=== PATIENT | male | born 1940 | race Caucasian/White ===

== ENCOUNTER 2018-02-11 12:54 | Emergency (ER) | payer MEDICARE, OTHER, SELFPAY ==
[2018-02-11 13:14] VITALS: BP 128/98; PULSE 63; RESP 18; O2SAT 100
--- NOTE | 2018-02-11 13:20 | DI.RAD.S_ITS ---
PROCEDURE: XR ANKLE RT MIN 3V INDICATIONS: fall with ankle pain TECHNIQUE: 3 views of the ankle were acquired. COMPARISON: None. FINDINGS: Bones: There is an obliquely oriented fracture identified involving the distal fibular metaphysis that extends into the joint space. No definite fracture of the medial malleolus with the posterior malleolus is evident. Widening of the distal tibiofibular syndesmosis is evident. Otherwise, the ankle mortise is well-maintained. There are mild degenerative changes of the tibiotalar joint. No suspicious osseous lesions are identified. There are plantar and Achilles spurs. Moderate degenerative changes are noted involving the midfoot joints. Soft tissues: There is a small tibiotalar joint effusion. Moderate soft tissue swelling about the ankle is present, more pronounced laterally. IMPRESSION: Minimally displaced distal fibula fracture. Dictated by: Chris Richey M.D. on 02/11/2018 at 14:01 Approved by: Chris Richey M.D. on 02/11/2018 at 14:04
[2018-02-11 13:23] VITALS: BP 128/98; PULSE 63; RESP 18; O2SAT 100; BMI 36.9
--- NOTE | 2018-02-11 13:29 | ED_ITS ---
HPI - Extremity Injury (Lower) <SATISH Goddard-BC - Last Filed: 02/11/18 20:41> General Chief Complaint: Extremity Injury, Lower Stated Complaint: RT ANKLE HURT FELL Time Seen by Provider: 02/11/18 13:08 Source: patient and family Mode of arrival: ambulatory Limitations: no limitations History of Present Illness HPI Narrative: Patient presents with chief complaint of right ankle pain. He tripped and fell at 4:30 a.m. this morning. His fall was mechanical as he tripped on a stair with the carpet. He did not lose consciousness, did not hit his head his neck or his back. He states he did have an abrasion to his left elbow, but he does not want that evaluated today. He took 600 of ibuprofen for his ankle pain at approximately 5:00 a.m. this morning. He states he has broken his right foot before. He denies any numbness or tingling. His pain is centered on the lateral aspect of his right ankle. Patient ambulated into the emergency department today. Related Data Home Medications Medication Instructions Recorded Confirmed allopurinol 300 mg PO QAM 02/11/18 02/11/18 amlodipine 2.5 mg PO DAILY 02/11/18 02/11/18 aspirin 81 mg PO BEDTIME 02/11/18 02/11/18 simvastatin 20 mg PO QAM 02/11/18 02/11/18 Previous Rx's Medication Instructions Recorded tramadol 50 mg PO Q6H PRN #14 tab 02/11/18 Review of Systems <LEIDY Goddard - Last Filed: 02/11/18 20:41> Review of Systems GENERAL: Denies chills, fatigue, malaise, fever, sweats. HEENT: Denies sinus pain, ear pain, sore throat, difficulty swallowing, dizziness. RESPIRATORY: Denies dyspnea, cough, wheezing, hemoptysis, sputum. CARDIOVASCULAR: Denies chest pain, palpitations, orthopnea, edema, GASTROINTESTINAL: Denies nausea, vomiting, abdominal pain, diarrhea, constipation, melena. : Denies dysuria, frequency, incontinence, hematuria, urinary retention. MUSCULOSKELETAL: See HPI SKIN: See HPI NEUROLOGIC: Denies weakness, headache, numbness, change in speech, confusion, seizures, incoordination. PSYCHIATRIC: No concerning psychosocial issues. 12 point review of systems is negative except for those stated above Exam <ROSITA Goddard - Last Filed: 02/11/18 20:41> Narrative Exam Narrative: GENERAL: This is a well-nourished, well-developed patient, in no acute distress. HEAD: Atraumatic. Normocephalic. No temporal or scalp tenderness. EYES: Pupils equal round and reactive. Extraocular motions intact. No scleral icterus. No injection or drainage. ENT: Nose without bleeding, purulent drainage or septal hematoma. Throat without erythema, tonsillar hypertrophy or exudate. Uvula midline. Airway patent. NECK: Trachea midline. No JVD or lymphadenopathy. Supple, nontender, no meningeal signs. CARDIOVASCULAR: Regular rate and rhythm without murmurs, gallops, or rubs. RESPIRATORY: Clear to auscultation. Breath sounds equal bilaterally. No wheezes , rales, or rhonchi. GASTROINTESTINAL: Abdomen soft, non-tender, nondistended. EXTREMITIES: Right ankle pain to palpation lateral superior to lateral malleolus. Patient is able to extend and flex right foot. Positive pedal pulses. Edema noted on right side. Positive pedal pulses right foot. BACK: Nontender without deformity or crepitance. No flank tenderness. NEURO: AOx3. SKIN: Bandage noted on left elbow. Noted to have swelling and slight ecchymosis lateral aspect of right ankle. Initial Vital Signs Initial Vital Signs: Vital Signs Pulse Rate 63 02/11/18 13:14 Respiratory Rate 18 02/11/18 13:14 Blood Pressure 128/98 H 02/11/18 13:14 Pulse Oximetry 100 02/11/18 13:14 <Eric Marie DO - Last Filed: 02/12/18 06:58> Initial Vital Signs Initial Vital Signs: Vital Signs Pulse Rate 63 02/11/18 13:14 Respiratory Rate 18 02/11/18 13:14 Blood Pressure 128/98 H 02/11/18 13:14 Pulse Oximetry 100 02/11/18 13:14 Course <ROSITA Goddard - Last Filed: 02/11/18 20:41> Orders Ordered: Discontinued Medications Tramadol HCl (Ultram) 50 mg PO NOW ONE Stop: 02/11/18 14:25 Last Admin: 02/11/18 14:38 Dose: 50 mg Reevaluation(s) Reevaluation #1: Discussed waiting for x-ray results. Patient is resting in bed with ice pack to ankle. Time: 13:35 Reevaluation #2: Discussed x-ray result of fibula fracture. Discussed nonweightbearing with crutches and splint. Discussed follow-up with Ortho. Discussed pain control as well as rest ice compression elevation. Ordered tramadol as patient states he has tolerated that before for pain. Time: 14:20 Vital Signs - 8 hr 02/11/18 13:14 02/11/18 13:23 02/11/18 15:01 Pulse Rate 63 63 58 L Respiratory Rate 18 18 Blood Pressure 128/98 H Blood Pressure [Left Arm] 128/98 H 130/84 H Pulse Oximetry 100 100 97 <Eric Marie DO - Last Filed: 02/12/18 06:58> Orders Ordered: Discontinued Medications Tramadol HCl (Ultram) 50 mg PO NOW ONE Stop: 02/11/18 14:25 Last Admin: 02/11/18 14:38 Dose: 50 mg Vital Signs - 8 hr 02/11/18 13:14 02/11/18 13:23 02/11/18 15:01 Pulse Rate 63 63 58 L Respiratory Rate 18 18 Blood Pressure 128/98 H Blood Pressure [Left Arm] 128/98 H 130/84 H Pulse Oximetry 100 100 97 MDM - Extremity Injury (Lower) <ROSITA Goddard - Last Filed: 02/11/18 20:41> Differential Diagnosis Likely ankle sprain and strain and ankle fracture Imaging Data right ankle xray: Radiologist's impression: [address] [address] XRay Report Signed Patient: VARSHA DEE MR#: [id number] : 1940 Acct:[id number] Age/Sex: 77 / M Date of Service: 02/11/18 Loc: ED Accession Number: [id number] Procedure: XR ankle RT min 3V Ordering Provider: Randa Ruelas PROCEDURE: XR ANKLE RT MIN 3V INDICATIONS: fall with ankle pain TECHNIQUE: 3 views of the ankle were acquired. COMPARISON: None. FINDINGS: Bones: There is an obliquely oriented fracture identified involving the distal fibular metaphysis that extends into the joint space. No definite fracture of the medial malleolus with the posterior malleolus is evident. Widening of the distal tibiofibular syndesmosis is evident. Otherwise, the ankle mortise is well-maintained. There are mild degenerative changes of the tibiotalar joint. No suspicious osseous lesions are identified. There are plantar and Achilles spurs. Moderate degenerative changes are noted involving the midfoot joints. Soft tissues: There is a small tibiotalar joint effusion. Moderate soft tissue swelling about the ankle is present, more pronounced laterally. IMPRESSION: Minimally displaced distal fibula fracture. Dictated by: Chris Richey M.D. on 02/11/2018 at 14:01 Approved by: Chris Richey M.D. on 02/11/2018 at 14:04 MDM Narrative Medical decision making narrative: Patient presented to the emergency department after a mechanical fall last night. He was weight-bearing when he presented to the ER. However x-ray illustrated a minimally displaced fibular fracture. He was given tramadol for pain control as that has worked well from the past. Given his age and fall risk, I placed him in a boot rather than a posterior splint. He was made nonweightbearing with crutches. I gave him a referral to [facility]. Discussed at length with him follow- up if concerned of and for circulation in his foot. Discharge Plan Departure Patient Disposition: Home, Self-Care Clinical Impression: Fracture of distal end of fibula Discharge Date/Time: 02/11/18 15:21 Interventions: ED Discharge Assessment Last Done: 02/11/18 15:20 Instructions: How to Use Crutches, DI for Ankle Fracture, How To Perform RICE ( Rest, Ice, Compress, Elevate), How to Prevent Falls Activity Restrictions/Additional Instructions: You broke the bottom end of the fibula. I would like you to stay off of it and be nonweightbearing. I have given you a small prescription for tramadol for pain. I would like you to rest ice compression elevation. Use crutches and do not bear weight on your foot. I would like you to follow up with Orthopedics. Please be re-evaluated if you are concerned about the circulation of her foot. I have given you a referral for [facility] so you have their contact information. Prescriptions: New tramadol 50 mg tablet 50 mg PO Q6H PRN (Reason: pain) Qty: 14 RF: 0 No Action amlodipine 5 mg Tablet 2.5 mg PO DAILY RF: 0 aspirin 81 mg Tablet,Delayed Release (Dr/Ec) 81 mg PO BEDTIME RF: 0 simvastatin 40 mg Tablet 20 mg PO QAM RF: 0 allopurinol 300 mg Tablet 300 mg PO QAM RF: 0 Referrals: [facility] [Outside] <Eric Marie DO - Last Filed: 02/12/18 06:58> Cosign ED Attending Jose Attestation: I was available for consultation during this patient's emergency department encounter
[2018-02-11] MEDS: TRAMADOL 50 MG TABLET PO (14:38)
[2018-02-11 15:01] VITALS: BP 130/84; PULSE 58; O2SAT 97
== END 2018-02-11 15:21 | disposition home or self-care (01) ==
PROVIDERS: Emergency Provider Nurse Practitioner Family
DX: S82.831A Other fracture of upper and lower end of right fibula, initial encounter for closed fracture (principal); W18.09XA Striking against other object with subsequent fall, initial encounter
CPT/HCPCS: 29580; 73610; 99283

== ENCOUNTER → 2018-02-13 13:33 | Outpatient (CLI) | payer MEDICARE, OTHER, SELFPAY ==
[2018-02-13 13:58] LABS: Add Manual Diff / Slide Review NO; Basophils Percent Auto 1.3 % (0-2); Hematocrit 42.3 % (41-53); Hemoglobin 14.6 g/dL (13.5-17.5); Mean Corpuscular HGB Conc 34.6 % (30-36); Mean Corpuscular Volume 89.8 fL (80-100); Monocytes Percent Auto 10.2 % (3-14); Neutrophils Absolute Auto 4900 /uL (3000-5900); Neutrophils Percent Auto 65.5 % (50-75); Platelet Count 153 X10^3/uL (150-400); Red Blood Cell Count 4.71 X10^6/uL (4.5-5.9); Red Cell Distribution Width 13.9 % (11.6-14.8); White Blood Cell Count 7.5 X10^3/uL (4.5-11.0)
[2018-02-13 14:52] LABS: Blood Urea Nitrogen 20 mg/dL (9-20); Calcium 8.9 mg/dL (8.4-10.2); Carbon Dioxide 25 mmol/L (22-32); Chloride 103 mmol/L (98-107); Estimated Glomerular Filt Rate > 60.0 mL/min (>60); Glucose 114 mg/dL (80-110); HEMOLYSIS 18 (0-50); Potassium 4.4 mmol/L (3.4-5.1); Sodium 139 mmol/L (137-145)
== END ==
PROVIDERS: Visit Provider Orthopaedic Surgery Foot and Ankle Surgery
DX: Z01.818 Encounter for other preprocedural examination (principal); Z01.812 Encounter for preprocedural laboratory examination; S82.891A Other fracture of right lower leg, initial encounter for closed fracture
CPT/HCPCS: 36415; 80048; 85025; 93005; 93010

== ENCOUNTER 2018-02-18 06:44 | Day surgery (SDC) | payer MEDICARE, OTHER, SELFPAY ==
[2018-02-17 10:43] VITALS: BMI 35.9
[2018-02-18] VITALS (9 sets, daily range): BP systolic 106–137; BP diastolic 70–83; PULSE 66–77; RESP 10–16; TEMP 36.2–36.7; O2SAT 92–933; BMI 35.9
--- NOTE | 2018-02-18 | DI.RAD.S_ITS ---
PROCEDURE: XR ANKLE RT MIN 3V INDICATIONS: ORIF RIGHT ANKLE TECHNIQUE: 3 views of the ankle were acquired. [facility] RIGHT, [facility]/13/2018, 10:45. FINDINGS: Bones: Intraoperative images show placement of a small plate over the medial aspect of the distal tibia and a long orthopedic plate and fixation screws over the distal fibula. Punctate radiodensity at the level of the tibiotalar joint space is not static and likely artifact, not seen on lateral view. The ankle mortise is symmetrical. Soft tissues: Lateral soft tissue swelling. IMPRESSION: Intraoperative ORIF right ankle fracture. Dictated by: Oseas Montgomery M.D. on 02/18/2018 at 14:08 Approved by: Oseas Montgomery M.D. on 02/18/2018 at 14:12
[2018-02-18] MEDS: LACTATED RINGERS 1,000 ML 42 ML IV (09:45)
--- NOTE | 2018-02-18 10:36 | PM.PREOP ---
Pre-operative Note Interval Note Pre-op Check: History & Physical Reviewed by Physician
--- NOTE | 2018-02-18 10:45 | PM.PROC.1 ---
Procedures Date/Time Date of procedure: 02/18/18 Time of procedure: 10:40 General Procedure description: Ultrasound guided popliteal sciatic nerve block for post op pain control after right ankle by Dr. Glover. Risk and benefits of procedure discussed with patient. ASA monitoring applied to patient. Oxygen given via nasal cannula. 1 mg Versed and 50 mcg fentanyl given for procedural sedation. Skin site was prepped with chlorhexidine and allowed to fully dry. Sterile gloves, mask, hat and probe cover were used to maintain sterility. 2% lidocaine and 30ga needle was used to make a small skin wheal at needle insertion site. Under ultrasound guidance, a 21ga 100mm Pajunk needle was directed near the division of the sciatic nerve into tibial and peroneal nerve in the popliteal fossa (lateral approach). Patient reported no parasthesias. After negative aspiration, 20 mL 0.5% ropivicaine and 10mg dexamethasone were injected around sciatic nerve. Patient tolerated procedure well.
[2018-02-18] MEDS: CEFAZOLIN 2 GM/100 ML FROZ.PIGGY IV (11:05)
--- NOTE | 2018-02-18 11:06 | SUR.PREOP ---
dr. kessler in to see patient to discuss anesthesia and regional block... pt consented.. monitors placed.. meds given by dr. kessler..pt awake and conversant thrpouight procedure,,, ekg nsr 60's, bp 120's-140's/80's.. respirs 14 plus.. tolerated well
--- NOTE | 2018-02-18 15:49 | SUR.PHASEII ---
PHYSICAL THERAPY CAME AMD WORKED WITH PT ON CRUTCH TRAINING WITH PT AND HIS , D/C INSTRUCTIONS REVIEWED WITH PT AND WITH VERBALIZED UNDERSTANDING. PT DENIES ANY PAIN, RIGHT FOOT/LEG DRESSING REMAINS DRY AND INTACT, TOES ARE PINK, WARM WITH BRISK CAPILLARY REFILL. PT AND EXPRESSED READYNESS AND DESIRE TO GO HOME.
--- NOTE | 2018-02-18 15:55 | PT.IIE ---
Current Diagnoses Other fracture of right lower leg, initial encounter for closed fracture (02/18/18) Surgery Performed Operation Date: 02/18/18 10:45 Actual Procedures p ORIF Ankle Fracture(Right) - Karol Glover MD Medical History (Last Updated 02/17/18 @ 10:49 by Rachel England RN) Foot fracture, right (Acute) Gout (Acute) HTN (hypertension) (Acute) Hyperlipidemia (Acute) Physical Therapy Inpatient Evaluation/Re-Eval M1 PT/OT-IP Prior Functional Status Start: 02/18/18 15:35 Freq: NEEDED Status: Discharge Protocol: Document 02/18/18 15:10 DLM (Rec: 02/18/18 15:55 DLM [id number]) Medical Review Prior Functional Status Medical History Reviewed Yes Diet/Fluid Consistency Regular Communication WFL Mobility and Gait Independent without device, active, drives Activities of Daily Living and IADL's Independent Prior Functional Level (Other details) camping in 5th wheel trailer, traveling for the summer, he has been using crutches since he fall 02/11/18 Social History Household Members spouse Living Arrangements House Number of Floors (Floors) Two Floors Number of Stairs To Enter/Railing? 3 Home Equipment Crutches Employment Status Retired Additional Social History Comment He is currently in his 5th Wheel trailer staying in [facility] until about 03/13/18. He plans to return home to his house in [place]. He has a very tall truck. He has 3 steps to get into trailer with rail. He has 3 steps up to the bathroom without rail inside the trailer. He can stay on the main floor of his home once he gets back to [place]. M2 PT-IP Current Condition Start: 02/18/18 15:35 Freq: NEEDED Status: Discharge Protocol: Document 02/18/18 15:10 DLM (Rec: 02/18/18 15:55 DLM [id number]) Physical Therapy Current Condition Current Condition Evaluation Date 02/18/18 Treatment Diagnosis right ankle fx, s/p ORIF, gait impairment Onset Date fell 02/11/18 Precautions Brace right ankle immobilized in splint/wrap post-op, he had a cam boot before sx Weight Bearing Status Weight Bearing Status Non-Weight Bearing M3 PT-IP Subjective Start: 02/18/18 15:35 Freq: NEEDED Status: Discharge Protocol: Document 02/18/18 15:10 DLM (Rec: 02/18/18 15:55 DL [id number]) Subjective Physical Therapy Visit Type Type Initial Evaluation Visit Start Time 14:30 Visit Stop Time 15:10 Total Visit Minutes 40 Number of GENERAL PRACTICE Visits 0 Physical Therapy Visit Comments Patient Comments He feels like his crutches are too tall Patient/Caregiver Goals He wants to return to his trailer Therapy Pain Assessment Pain When Pain Assessed During Mobility Location right ankle Intensity 0 Scale Used Numeric (1 - 10) Pain Management Techniques Apply Cold Elevation M4 PT-IP Mobility and Gait Start: 02/18/18 15:35 Freq: NEEDED Status: Discharge Protocol: Document 02/18/18 15:10 DLM (Rec: 02/18/18 15:55 DL [id number]) PT-Bed Mobility Assessment Rolling Level of Assist Independent Supine to Sit Supine to Sit Independent Sit to Supine Sit to Supine Independent Scooting Scooting to Edge of Bed Independent Scooting Up and Down in Bed Independent PT-Transfer Assessment Sit to and From Stand Sit to and from Stand Independent Equipment Transfer Assistive Device Axillary Crutches Orthotic/Prosthetic Devices or Brace: Yes Transfers Transfer Destination Chair Transfer Technique Stand Step Pivot Transfer Ability Level of Assist Standby Assistance Comments Mobility Comments one lateral loss of balance when attempting to turn too fast, after training this problem resolved Gait Assessment Gait Gait Assistance Required: Standby Assistance Distance (Feet) (feet) 40 Able to Maintain Weight Bearing Status Yes During Gait Assistive Devices Assistive Device Gait Belt Axillary Crutches Orthotic/Prosthetic Devices or Brace: Yes Factors Limiting Gait Function Factors Limiting Gait Function Decreased Activity Tolerance Comments Gait Comments changed crutches out to standard crutches and adjusted them to improve his safety with crutches, he has intermittent difficulty coordinating gait pattern for hopping but this improved with training PT-Balance Assessment Sitting Balance and Reactions Static Sitting Balance Ability Normal Dynamic Sitting Balance Ability Normal Standing Balance and Reactions Static Standing Balance Ability Fair Dynamic Standing Balance Ability Fair Device Used with crutches and NWB right LE M5 PT-IP Objective Assessments Start: 02/18/18 15:35 Freq: NEEDED Status: Discharge Protocol: Document 02/18/18 15:10 DLM (Rec: 02/18/18 15:55 DL [id number]) Orientation Orientation/Cognition Level of Alertness Alert Orientation Name Age Birthday Month Date Year Day of Week Place Situation Language Function Ability No Deficits Noted Safety Awareness Understands Safety Issues Memory Description No Deficits Noted Comments His is present this visit , she appears very worried at this time Gross Range of Motion Upper Extremity ROM Assessment Within Functional Limits Lower Extremity ROM Assessment Right Impaired Impairments right ankle immobilized post- op Strength Upper Extremity Strength Assessment Within Functional Limits Lower Extremity Strength Assessment Right Impaired Ankle unable to use Coordination Assessment Gross Coordination Gross Coordination WNL Sensation Assessment Sensation Gross Sensation Right LE Impaired Sensation Description Numbness Comments Sensation Comments post-op numbness right distal LE Muscle Tone Muscle Tone WNL Yes M6 PT-IP Treatment Start: 02/18/18 15:35 Freq: NEEDED Status: Discharge Protocol: Document 02/18/18 15:10 DLM (Rec: 02/18/18 15:55 DLM [id number]) Physical Therapy Treatment Education Education Provided Weight Bearing Status Safety Equipment Issued Equipment Type and Company provided gait belt for pt and his to use as needed Other Treatments Other Treatment Performed educated pt and his in home safety issues, pt to back up to truck and get buttocks on seat before attempting to get his LE's into truck, pt may benefit from FWW once back in [place] at home but unfortunately a FWW will not fit in his trailer M7 PT-IP Assessment and Plan Start: 02/18/18 15:35 Freq: NEEDED Status: Discharge Protocol: Document 02/18/18 15:10 DLM (Rec: 02/18/18 15:55 DLM [id number]) PT Summary Assessment and Plan Potential Rehabilitation Potential Good Status of Condition at Evaluation Evolving Summary Impairments Pain ROM Strength Balance Gait Activity Tolerance Assessment Summary Completed education and training in PACU post-op ankle ORIF. Pt demonstrates understanding of his NWB status on right ankle. He is functional on crutches at this time. Since he is in a trailer the crutches are his best option. Treatment Plan Other Recommendations and Next Treatment pt to discharge with his Focus later today Discharge Recommendations PT Discharge Recommendations Home with Assistance
--- NOTE | 2018-02-18 19:52 | PM.OP.1 ---
Operative Date/Time/Diagnoses - Date of procedure: 02/18/18 Time of procedure: 10:52 Pre-op diagnosis: Closed right ankle fracture icd [id number] bimalleolar equivalent Syndesmosis disruption Procedure & Clinicians Procedure: ORIF fracture distal fibula, right CPT code 80780 ORIF syndesmosis, ankle, right [id number] Same procedure as scheduled: Yes Indications: The patient [place] 77[place]year[place] stepping out of his camper trailer. He sustained a minimally displaced oblique distal fibula fracture. On examination and a gravity stress imaging there was evidence of medial clear space widening. Additionally the patient had tenderness along the deltoid ligament. Based on the patient's physical examination x-rays he was found have a bimalleolar equivalent ankle fracture with evidence of instability and possible syndesmotic involvement. Treatment options were discussed with the patient. The patient has elected for operative fixation. Risks benefits and alternatives to the pre and were discussed with the patient in detail including infection, nonunion, malunion, irritation from hardware, persistent pain, posttraumatic arthritis, DVT, PE, cardiopulmonary complications and . The patient does not use tobacco and is not diabetic. The patient understands that recovery is variable and may require up to 1 year. The patient also understands that it is critical to elevate the operative extremity for the 1st 2 weeks after surgery to control swelling and pain. The patient was counseled that no weight will be allowed on the surgical leg for approximately 6 weeks or until the patient is instructed that it is safe to initiate weight-bearing. The patient expressed full understanding of all these issues and would like to proceed with surgery. Informed consent was obtained and signed in the office. Patient was additionally counseled DVT prophylaxis with 6 weeks of aspirin starting postop day 1 was discussed. Surgeon: Karol Glover Click Yes if Unassisted: Yes Anesthesia Type: General and Peripheral nerve block Operative Notes Findings: Unstable right distal lateral malleolus fracture was encountered this was oblique in orientation with small amount of posterior lateral comminution. This was stabilized with a 2.7 lag screw and a 8 hole locking 1/3 tubular plate. Following fixation of the fibula the syndesmosis was then stressed under fluoroscopic guidance in external rotation and with the cotton and hook test. This was found to be unstable and there was approximately 1-2 mm of lateral shift as well and observation of gross super physiologic motion on visual examination of the syndesmosis. Syndesmosis was formally opened this was reduced with thumb pressure and pinned with a 1.6 K-wire. Syndesmosis was then stabilized with a suture button device, the [employer] invisiknot. This was securely fashioned and an anatomic reduction of the syndesmosis was noted. The K-wire was removed before final tightening. Closure Type: primary Specimen(s): none sent Estimated Blood Loss (mL): 5 Blood products transfused: none Tourniquet time (min): 80 Procedure in detail: The preoperative holding area, the appropriate limb and sites of surgery were marked. The patient was brought to the operating room, placed on the operating table and given an anesthetic. Following successful level of anesthesia, the patient was appropriately padded, position secured to the table. An SCD was placed on the contralateral leg. For this procedure the patient was placed supine with a ipsilateral hip bump. A well-padded thigh tourniquet was placed. The surgical leg was then prepped and draped in the standard sterile fashion. A formal time-out procedure was completed confirming the patient, side and site of surgery and administration of appropriate preoperative antibiotics. All were in agreement. An Esmarch bandage utilized to exsanguinate the limb and the tourniquet was raised on the thigh to 300 mm of mercury. A posterior lateral incision was made just posterior to the fibula. Dissection was carried down through the skin and subcutaneous tissue to the level of the fibula. The fracture was exposed and cleaned of debris. The fracture was then reduced using rotation and tracked to restore length rotation and alignment. This was then stabilized using a K-wire and a pointed reduction clamp. Then a 2.7 lag screw was placed perpendicular to the fracture. Placement and reduction were evaluated on x-ray and found to be appropriate. Next a 8 hole 1/3 tubular locking plate was selected and placed in a neutralization position with 3 5 cortical screws proximally and 3 5 locking screws placed distally to avoid prominence and backing out. The ankle was then stressed under fluoroscopic guidance in external rotation and fibular manipulation using the bone clamp and hook. There was felt to be a subtle but approximately 1-2 mm of lateral translation of the talus additionally with visual inspection of the syndesmosis supra physiologic motion was noted to be present. The syndesmosis was formally opened reduced with thumb pressure and pinned with a 1.6 K-wire. This was evaluated on AP, mortise, lateral imaging felt to be appropriate. Next the drill for the suture button device was placed from the fibula through the tibia and out the medial skin. A small incision was made for the drill and the suture button device was passed through the bone. The suture button was visually secured on the medial cortex of the tibia. In the lateral button of the suture button device was tightened down into the plate. The K-wire was removed prior to final tightening of the suture button device. This was then again checked on x-ray and found to be anatomic in alignment, and stable. Suture button device was then backed up with several half hitches and the suture tape cut. Final intraoperative imaging was obtained. Tourniquet was released hemostasis was achieved and the wound was irrigated with normal saline. The wound was closed in layers with 3 0 Vicryl 4 0 Monocryl and jaquan. Sterile bulky dressings were placed with Xeroform gauze Webril and a stirrup splint. All counts were correct. Patient was woken from anesthesia and taken to recovery room in good condition. There were no immediate known complications from this procedure Complications: none Condition: stable Disposition: same day surgery Plan for aftercare: Patient will be nonweightbearing on the surgical leg. They will start taking 325 mg g of aspirin on postoperative day 1 of 4 DVT prophylaxis x6 weeks. The patient will follow up in 2 weeks for removal of jaquan and be placed in a boot. They will continue be nonweightbearing for 6 weeks.
== END 2018-02-18 15:40 | disposition home or self-care (01) ==
PROVIDERS: Visit Provider Orthopaedic Surgery Foot and Ankle Surgery
PROC: 0SSF04Z Reposition Right Ankle Joint with Internal Fixation Device, Open Approach (ICD-10-PCS; CPT 27792; principal; 2018-02-18 10:45)
DX: S82.891A Other fracture of right lower leg, initial encounter for closed fracture (principal); G89.18 Other acute postprocedural pain; W10.8XXA Fall (on) (from) other stairs and steps, initial encounter; Z87.891 Personal history of nicotine dependence
CPT/HCPCS: 27792; 27829; 64450; 73610; 76001; 97116; 97162; J0690; J1100; J2250; J2405; J2704; J3010